=== PATIENT | female | born 1935 | race Caucasian/White ===

== ENCOUNTER → 2019-06-24 12:26 | Outpatient (CLI) | payer OTHER, SELFPAY ==
--- NOTE | 2019-06-24 | DI.MG.S_ITS ---
PROCEDURE: MM SCREENING MAMMO BI COMPARISON: [facility], , BILATERAL SCREEING MAMMOGRAM W/ CAD, 08/01/2015, 17:46. [facility], , BILATERAL SCREEING MAMMOGRAM W/ CAD, 01/01/2012, 14:14. [facility], , BILATERAL SCREEING MAMMOGRAM W/ CAD, 11/19/2009, 9:00. INDICATIONS: ROUTINE MAMMO FINDINGS: IMPRESSION: Dictated by: Vik Giordano M.D. on 06/24/2019 at 16:06 Approved by: Vik Giordano M.D. on 06/24/2019 at 16:08
== END ==
PROVIDERS: Visit Provider Nurse Practitioner
DX: Z12.31 Encounter for screening mammogram for malignant neoplasm of breast (principal); M85.851 Other specified disorders of bone density and structure, right thigh; Z78.0 Asymptomatic menopausal state; Z82.62 Family history of osteoporosis; E07.9 Disorder of thyroid, unspecified
CPT/HCPCS: 77063; 77067; 77080

== ENCOUNTER → 2019-07-01 15:41 | Outpatient (CLI) | payer OTHER, SELFPAY ==
[2019-07-01 16:21] LABS: Add Manual Diff / Slide Review NO; Basophils Absolute Auto 0 /uL (0-100); Basophils Percent Auto 0.7 % (0-2); Eosinophils Absolute Auto 300 /uL (0-450); Eosinophils Percent Auto 6.6 % (2-4); Hematocrit 36.5 % (36-46); Hemoglobin 12.5 g/dL (12.0-16.0); Lymphocytes Absolute Auto 900 /uL (1100-4500); Mean Corpuscular HGB Conc 34.3 % (30-36); Mean Corpuscular Hemoglobin 32.2 PG (26-34); Mean Corpuscular Volume 93.9 fL (80-100); Monocytes Absolute Auto 300 /uL (0-900); Monocytes Percent Auto 6.8 % (3-14); Neutrophils Absolute Auto 3100 /uL (1500-7000); Neutrophils Percent Auto 66.9 % (50-75); Platelet Count 162 X10^3/uL (150-400); Red Blood Cell Count 3.88 X10^6/uL (4.0-5.2); Red Cell Distribution Width 13.6 % (11.6-14.8); White Blood Cell Count 4.6 X10^3/uL (4.5-11.0)
[2019-07-01 16:56] LABS: Alanine Aminotransferase 28 IU/L (9-52); Albumin 4.2 g/dL (3.5-5.0); Albumin Globulin Ratio 1.5 (1.0-2.8); Alkaline Phosphatase 58 U/L (38-126); Aspartate Aminotransferase 27 IU/L (14-36); BUN Creatinine Ratio 23.3 (6-22); Bilirubin Total 0.7 mg/dL (0.2-1.3); Blood Urea Nitrogen 21 mg/dL (7-17); Calcium 10.2 mg/dL (8.4-10.2); Carbon Dioxide 35 mmol/L (22-32); Chloride 98 mmol/L (98-107); Cholesterol 189 mg/dL (140-199); Estimated Glomerular Filt Rate 59.8 mL/min (>60); Globulin 2.8 g/dL (1.7-4.1); Glucose 86 mg/dL (80-110); HDL Cholesterol 64 mg/dL (40-60); HEMOLYSIS 23 (0-50); LDL Cholesterol Calculated 104 mg/dL (<100); Sodium 138 mmol/L (137-145); Triglycerides 105 mg/dL (35-150)
[2019-07-01 17:27] LABS: Thyroid Stimulating Hormone 0.53 uIU/mL (0.47-4.68)
== END ==
PROVIDERS: PCP Nurse Practitioner; Visit Provider Nurse Practitioner
DX: I10 Essential (primary) hypertension (principal); G25.81 Restless legs syndrome; I83.10 Varicose veins of unspecified lower extremity with inflammation; G47.00 Insomnia, unspecified
CPT/HCPCS: 36415; 80053; 80061; 84443; 85025

== ENCOUNTER → 2020-03-02 10:36 | Outpatient (CLI) | payer MEDICARE, OTHER, SELFPAY ==
[2020-03-02 11:39] LABS: Hematocrit 33.5 % (36-46); Hemoglobin 12.1 g/dL (12.0-16.0); Mean Corpuscular HGB Conc 36.1 % (30-36); Mean Corpuscular Hemoglobin 33.7 PG (26-34); Mean Corpuscular Volume 93.5 fL (80-100); Platelet Count 155 X10^3/uL (150-400); Red Blood Cell Count 3.58 X10^6/uL (4.0-5.2); Red Cell Distribution Width 14.9 % (11.6-14.8); White Blood Cell Count 3.5 X10^3/uL (4.5-11.0)
[2020-03-02 11:57] LABS: Aspartate Aminotransferase 27 IU/L (14-36); Blood Urea Nitrogen 13 mg/dL (7-17); Calcium 9.8 mg/dL (8.4-10.2); Carbon Dioxide 33 mmol/L (22-32); Chloride 100 mmol/L (98-107); Cholesterol 128 mg/dL (140-199); Estimated Glomerular Filt Rate > 60.0 mL/min (>60); Glucose 91 mg/dL (80-110); HDL Cholesterol 55 mg/dL (40-60); HEMOLYSIS < 15 (0-50); LDL Cholesterol Calculated 55 mg/dL (<100); Potassium 3.9 mmol/L (3.4-5.1); Sodium 138 mmol/L (137-145); Triglycerides 88 mg/dL (35-150)
[2020-03-02 12:31] LABS: TSH w/ Reflex to FT4 0.04 uIU/mL (0.47-4.68)
[2020-03-02 13:05] LABS: Free T4, Direct Thyroxine 1.88 ng/dL (0.78-2.19)
== END ==
PROVIDERS: PCP Internal Medicine; Referring Provider Internal Medicine; Visit Provider Internal Medicine
DX: I10 Essential (primary) hypertension (principal); E78.2 Mixed hyperlipidemia; E03.9 Hypothyroidism, unspecified; G60.9 Hereditary and idiopathic neuropathy, unspecified
CPT/HCPCS: 36415; 80048; 80061; 84439; 84443; 84450; 85027

== ENCOUNTER → 2020-04-18 12:43 | Outpatient (CLI) | payer MEDICARE, OTHER, SELFPAY ==
[2020-04-18 14:22] LABS: Reticulocyte Count, Percent 0.8 % (1.06-2.63)
[2020-04-18 15:06] LABS: Iron 77 ug/dL (37-170)
[2020-04-18 15:39] LABS: Ferritin 136 ng/mL (11-264)
[2020-04-18 16:09] LABS: Folate 12.2 ng/mL (2.76-20.0); Vitamin B12 481 pg/mL (239-931)
== END ==
PROVIDERS: PCP Internal Medicine; Referring Provider Internal Medicine; Visit Provider Internal Medicine
DX: D84.8 Other specified immunodeficiencies (principal); E53.8 Deficiency of other specified B group vitamins; D84.9 Immunodeficiency, unspecified; D64.9 Anemia, unspecified
CPT/HCPCS: 36415; 82607; 82728; 82746; 83540; 85045

== ENCOUNTER → 2020-08-20 18:34 | Outpatient (ROUT) | payer MEDICARE, OTHER, SELFPAY ==
[2020-08-20 19:04] LABS: Add Manual Diff / Slide Review NO; Basophils Absolute Auto 0 /uL (0-100); Basophils Percent Auto 0.3 % (0-2); Eosinophils Absolute Auto 0 /uL (0-450); Hematocrit 33.9 % (36-46); Hemoglobin 11.6 g/dL (12.0-16.0); Lymphocytes Absolute Auto 1100 /uL (1100-4500); Lymphocytes Percent Auto 25.4 % (25-40); Mean Corpuscular HGB Conc 34.2 % (30-36); Mean Corpuscular Hemoglobin 31.9 PG (26-34); Mean Corpuscular Volume 93.4 fL (80-100); Monocytes Absolute Auto 300 /uL (0-900); Monocytes Percent Auto 6.6 % (3-14); Neutrophils Absolute Auto 3000 /uL (1500-7000); Neutrophils Percent Auto 67.7 % (50-75); Platelet Count 146 X10^3/uL (150-400); Red Blood Cell Count 3.63 X10^6/uL (4.0-5.2); Red Cell Distribution Width 13.7 % (11.6-14.8); White Blood Cell Count 4.4 X10^3/uL (4.5-11.0)
[2020-08-20 19:19] LABS: BUN Creatinine Ratio 18.8 (6-22); Blood Urea Nitrogen 16 mg/dL (7-17); Calcium 9.5 mg/dL (8.4-10.2); Carbon Dioxide 36 mmol/L (22-32); Chloride 101 mmol/L (98-107); Estimated Glomerular Filt Rate > 60.0 mL/min (>60); Glucose 80 mg/dL (80-110); HEMOLYSIS < 15 (0-50); Sodium 140 mmol/L (137-145)
[2020-08-20 19:47] LABS: TSH w/ Reflex to FT4 0.15 uIU/mL (0.47-4.68)
[2020-08-20 20:41] LABS: Free T4, Direct Thyroxine 1.92 ng/dL (0.78-2.19)
== END ==
PROVIDERS: PCP Internal Medicine; Visit Provider Internal Medicine
DX: D64.9 Anemia, unspecified (principal); E03.9 Hypothyroidism, unspecified; I10 Essential (primary) hypertension
CPT/HCPCS: 80048; 84439; 84443; 85025

== ENCOUNTER → 2021-03-05 14:01 | Outpatient (CLI) | payer MEDICARE, OTHER, SELFPAY | PROVIDERS: PCP Internal Medicine; Referring Provider Internal Medicine; Visit Provider Internal Medicine | DX: M85.851 Other specified disorders of bone density and structure, right thigh (principal); Z78.0 Asymptomatic menopausal state; E07.9 Disorder of thyroid, unspecified; Z82.62 Family history of osteoporosis | CPT/HCPCS: 77080 ==

== ENCOUNTER → 2023-08-09 16:02 | Outpatient (CLI) | payer MEDICARE, OTHER, SELFPAY | PROVIDERS: PCP Internal Medicine; Visit Provider Physician Assistant | DX: J02.9 Acute pharyngitis, unspecified (principal) | CPT/HCPCS: 87070; 87880 ==

== ENCOUNTER 2024-05-20 18:24 | Emergency (ER) | payer MEDICARE, OTHER, SELFPAY ==
[2024-05-20] VITALS (8 sets, daily range): BP systolic 137–178; BP diastolic 63–92; PULSE 52–66; RESP 15–18; TEMP 36.9–37.1; O2SAT 96–99; BMI 22.8
--- NOTE | 2024-05-20 18:38 | EKG_ITS ---
[place] [id number] [place] [id number] Test Date: 2024-05-20 Pat Name: Starr Mccarthy Department: [facility] Room: Gender: Female [employer]: : 1935 Requested By: Order Number: [id number] Reading MD: Matthew Acosta Measurements Intervals [place] Rate: 57 P: 69 [place]: 236 QRS: -12 QRSD: 84 T: 24 QT: 432 QTc: 420 Interpretive Statements Sinus bradycardia with 1st degree AV block Minimal voltage criteria for LVH, may be normal variant ( R in aVL ) Cannot rule out Anterior infarct , age undetermined Electronically Signed On 05-22-2024 7:16:02 PDT by Matthew Acosta
--- NOTE | 2024-05-20 18:38 | DI.RAD.S_ITS ---
PROCEDURE: XR CHEST 1V INDICATIONS: chest pain TECHNIQUE: One view of the chest was acquired. COMPARISON: None. FINDINGS: Surgical changes and devices: Densities seen along the lateral chest wall, probably external. Lungs and pleura: No dense consolidation or pleural effusion Mediastinum: Normal heart size Bones and chest wall: Degenerative changes IMPRESSION: Limited single view radiograph without acute abnormality. Dictated by: Donnie Jack M.D. on 05/20/2024 at 19:19 Approved by: Donnie Jack M.D. on 05/20/2024 at 19:19
--- NOTE | 2024-05-20 18:38 | DI.CT.S_ITS ---
PROCEDURE: CT HEAD/BRAIN WO CON INDICATIONS: syncope/ hit head TECHNIQUE: Noncontrast 4.5 mm thick angled axial sections acquired from the foramen magnum to the vertex, with coronal and sagittal reformats. For radiation dose reduction, the following was used: automated exposure control, adjustment of mA and/or kV according to patient size. COMPARISON: None. FINDINGS: Image quality: Diagnostic CSF spaces: Basal cisterns are patent. Lateral ventricles are symmetric. Volume: Vascular calcifications. Periventricular white matter disease is commonly seen with chronic microangiopathy. Volume loss is present. These findings are [id number] Brain: No acute hematoma. No gross loss of otero-white differentiation Craniofacial structures: No significant paranasal sinus opacity. IMPRESSION: No acute intracranial pathology. If there is high concern for parenchymal pathology, consider further evaluation with MRI. Dictated by: Donnie Jack M.D. on 05/20/2024 at 19:19 Approved by: Donnie Jack M.D. on 05/20/2024 at 19:20
--- NOTE | 2024-05-20 18:38 | DI.CT.S_ITS ---
PROCEDURE: CT CERVICAL SPINE WO CON INDICATIONS: syncope/ hit head TECHNIQUE: Noncontrast 3 mm thick sections acquired from the skull base to the T4 level. Sagittal and coronal reformats were then constructed. For radiation dose reduction, the following was used: automated exposure control, adjustment of mA and/or kV according to patient size. COMPARISON: None. FINDINGS: Image quality: Diagnostic Bones: Moderate degenerative changes. Age-indeterminate endplate deformity at T2, nonacute appearing. No acute vertebral body height loss or traumatic subluxation. Slight rotational asymmetry of C1 on C2 may be positional. Partially seen rightward thoracic spinal curvature. Soft tissues: There are vascular calcifications. No pathologic prevertebral soft tissue swelling IMPRESSION: No displaced fracture or traumatic subluxation. Moderate degenerative changes. Slight rotational asymmetry of C1 on C2 may be positional. If there is high concern for further derangement, consider MRI evaluation. Dictated by: Donnie Jack M.D. on 05/20/2024 at 19:21 Approved by: Donnie Jack M.D. on 05/20/2024 at 19:23
[2024-05-20 19:34] LABS: Add Manual Diff / Slide Review NO; Basophils Absolute Auto 0 /uL (0-100); Basophils Percent Auto 0.6 % (0-2); Eosinophils Absolute Auto 100 /uL (0-450); Eosinophils Percent Auto 2.4 % (2-4); Hematocrit 34.3 % (36-46); Hemoglobin 11.6 g/dL (12.0-16.0); Lymphocytes Absolute Auto 1100 /uL (1100-4500); Lymphocytes Percent Auto 21.2 % (25-40); Mean Corpuscular HGB Conc 33.7 % (30-36); Mean Corpuscular Hemoglobin 31.4 PG (26-34); Mean Corpuscular Volume 93.1 fL (80-100); Monocytes Absolute Auto 300 /uL (0-900); Monocytes Percent Auto 6.6 % (3-14); Neutrophils Absolute Auto 3600 /uL (1500-7000); Neutrophils Percent Auto 69.2 % (50-75); Platelet Count 173 X10^3/uL (150-400); Red Blood Cell Count 3.68 X10^6/uL (4.0-5.2); Red Cell Distribution Width 14.4 % (11.6-14.8); White Blood Cell Count 5.2 X10^3/uL (4.5-11.0)
[2024-05-20 19:37] LABS: Prothrombin Time 11.2 SECONDS (9.4-12.5)
[2024-05-20 19:40] LABS: PTT Partial Thromboplastin Tim 36 SECONDS (25.1-36.5)
[2024-05-20 19:41] LABS: Alanine Aminotransferase 47 IU/L (<35); Albumin 4.2 g/dL (3.5-5.0); Albumin Globulin Ratio 1.3 (1.0-2.8); Alkaline Phosphatase 68 U/L (38-126); Aspartate Aminotransferase 40 IU/L (14-36); BUN Creatinine Ratio 30.5 (6-22); Bilirubin Total 0.5 mg/dL (0.2-1.3); Blood Urea Nitrogen 32 mg/dL (7-17); Calcium 9.2 mg/dL (8.4-10.2); Carbon Dioxide 30 mmol/L (22-32); Chloride 101 mmol/L (98-107); Creatine Kinase 326 U/L (30-135); Estimated Glomerular Filt Rate 51 mL/min (>60); Globulin 3.2 g/dL (1.7-4.1); Glucose 94 mg/dL (80-110); HEMOLYSIS < 15 (0-50); Lipase 73 U/L (23-300); Potassium 3.4 mmol/L (3.4-5.1); Sodium 135 mmol/L (137-145); Total Protein 7.4 g/dL (6.3-8.2)
--- NOTE | 2024-05-20 19:42 | PC.NURSE ---
had similar syncopal episode back in January while in [place], patient states she was in the hospital for 48hrs and they couldnt find a cause. Patient reports feeling dizzy before syncopizing and feeling very flushed
[2024-05-20 19:53] LABS: NT-proBNP (BNP-Adult 18+) 374 pg/mL (<450); Troponin I < 0.012 ng/mL (0.01-0.034)
--- NOTE | 2024-05-20 22:42 | ED.SYNCOPE ---
HPI - Syncope General Chief Complaint: Syncope Stated Complaint: syncopal episode t-3, poss broken ribs Time Seen by Provider: 05/20/24 22:42 Source: patient, RN notes reviewed and old records reviewed Mode of arrival: Ambulatory Limitations: no limitations History of Present Illness HPI narrative: 88-year-old female history of restless leg, hypertension patient states no known cardiac disease. She states Thursday night Thursday morning she was standing felt hot and dizzy had been riding some checked out. She went to go to the bathroom and next thing she knew she woke up on the floor. This was several days ago. She states she is felt okay since then but when she rolls over she has pain in her right posterior ribs. She is unsure if there is any skin changes. She has not had any more syncopal episodes denies any other dizziness, denies chest pain or shortness of breath, no nausea or vomiting no other GI or urinary symptoms. Patient states she had some numbness and tingling in her leg but gets that on and off normally related to her restless leg. Patient states she has had 1 prior syncopal episode in January and before that was 2012. She states she does not take any cardiac meds but does take medication for hypertension. Denies any drug allergies. Active tobacco use, denies regular alcohol, denies any recreational drugs. States she is supposed to be establishing with Dr. Lott but does not have this confirmed. Patient was sent from walk-in clinic. Related Data Previous Rx's Medication Instructions Recorded lidocaine 5 % topical patch 1 patch topical DAILY #30 ea 05/20/24 Allergies Allergy/AdvReac Type Severity Reaction Status Date / Time No Known Drug Allergies Allergy Unverified 08/09/23 15:37 Review of Systems Review of Systems ROS Unobtainable: All systems reviewed & are unremarkable except as noted in HPI and below Patient History Social History Smoking Status: Smoker, status unknown Smoking Status: Smoker, status unknown Exam Narrative Exam Narrative: GEN:Patient appears in mild distress. Patient was standing and ambulating out of the room during evaluation. HEAD: Patient has some greenish ecchymosis on the left forehead, no hematoma, no raccoon/[place]a sign. NECK: Nontender, painless range of motion, trachea midline No Nexus criteria, no line tenderness, distracting injury, altered mental status, neuro deficit, recent EtOH. EYES: PERRLA, EOMI ENT: External inspection normal, trachea is midline, TM's are normal no hemotypanum, Nares are clear, no septal hematoma, no dental or oral injury, airway is normal and with normal occlusion, No bony tenderness RESP: Chest he is nontender except for the wrote posterior rims around 9 in 10. No obvious ecchymosis but there is a little bit of ecchymosis just below. No hematoma. Patient is mildly tender to touch. And has symmetric movement, no ecchymosis, breath sounds are normal no crackles, wheezes or rales CVS: Heart sounds are normal, no murmur noted, No JVD. ABG/GI: Nontender, soft, normal bowel sounds, no distention, no organomegaly, pelvic rock is negative NEURO: Oriented AOx3, neuro is grossly intact, sensation and motor is normal all 4 extremities moving, cranial nerves II through XII are intact, GCS is 15 PSYCH: Normal mood and affect SKIN: Intact, warm and dry, no crepitus and without decubitus BACK: No CVA tenderness, no vertebral tenderness, no step-off's, no crepitus EXT: Atraumatic, hips are nontender, no pedal edema, normal color and temperature, normal range of motion of extremities with normal tendon exam, 2+ pulses in all four extremities Initial Vital Signs Initial Vital Signs: Vital Signs Temperature 98.7 F 05/20/24 18:26 Pulse Rate 62 05/20/24 18:26 Respiratory Rate 16 05/20/24 18:26 Blood Pressure 174/92 H 05/20/24 18:26 Pulse Oximetry 98 05/20/24 18:26 Oxygen Delivery Method Room Air 05/20/24 18:26 Course Orders Ordered: ED Orders 05/20/24 18:38 CT cervical spine wo con Stat CT head/brain wo con Stat XR chest 1V Stat EKG-12 Lead Stat 05/20/24 19:20 Complete Blood Count AUTO DIFF Stat Comprehensive Metabolic Panel Stat Lipase Stat Magnesium Stat NT-proBNP (BNP-Adult 18+) Stat PTT Partial Thromboplastin Andre Stat Prothrombin Time INR Stat Troponin & CK Cardiac Panel Stat Discontinued Medications Lidocaine (Lidocaine 5% Patch) 1 each TOP NOW ONE Stop: 05/20/24 22:58 Last Admin: 05/20/24 23:04 Dose: 1 each Documented By: DAYANARA Vital Signs Vital signs: Vital Signs - 8 hr 05/20/24 19:30 05/20/24 19:30 05/20/24 20:00 Temperature Pulse Rate 52 L 54 L Respiratory Rate 15 15 Blood Pressure 158/71 H Pulse Oximetry 97 97 Oxygen Delivery Method 05/20/24 20:00 05/20/24 20:30 05/20/24 20:30 Temperature Pulse Rate 60 Respiratory Rate 15 Blood Pressure 137/63 164/72 H Pulse Oximetry 97 Oxygen Delivery Method 05/20/24 21:00 05/20/24 23:14 Temperature 98.4 F Pulse Rate 63 66 Respiratory Rate 17 18 Blood Pressure 163/71 H Pulse Oximetry 99 98 Oxygen Delivery Method Room Air MDM - Syncope Lab Data 05/20/24 19:20 05/20/24 19:20 Labs: Lab Results 05/20/24 Range/Units 19:20 WBC 5.2 (4.5-11.0) X10^3/uL RBC 3.68 L (4.0-5.2) X10^6/uL Hgb 11.6 L (12.0-16.0) g/dL Hct 34.3 L (36-46) % MCV 93.1 (80-100) fL MCH 31.4 (26-34) PG MCHC 33.7 (30-36) % RDW 14.4 (11.6-14.8) % Plt Count 173 (150-400) X10^3/uL Neut % (Auto) 69.2 (50-75) % Lymph % (Auto) 21.2 L (25-40) % [place] % (Auto) 6.6 (3-14) % Eos % (Auto) 2.4 (2-4) % Baso % (Auto) 0.6 (0-2) % Neut # (Auto) 3600 (1723-5360) /uL Lymph # (Auto) 1100 (5632-5156) /uL [place] # (Auto) 300 (0-900) /uL Eos # (Auto) 100 (0-450) /uL Baso # (Auto) 0 (0-100) /uL PT 11.2 (9.4-12.5) SECONDS INR 1.0 (0.9-1.3) APTT 36 (25.1-36.5) SECONDS Sodium 135 L (137-145) mmol/L Potassium 3.4 (3.4-5.1) mmol/L Chloride 101 (98-107) mmol/L Carbon Dioxide 30 (22-32) mmol/L BUN 32 H (7-17) mg/dL Creatinine 1.05 H (0.52-1.04) mg/dL Estimated GFR 51 L (>60) mL/min BUN/Creatinine Ratio 30.5 H (6-22) Glucose 94 (80-110) mg/dL Calcium 9.2 (8.4-10.2) mg/dL Magnesium 2.0 (1.6-2.3) mg/dL Total Bilirubin 0.5 (0.2-1.3) mg/dL AST 40 H (14-36) IU/L ALT 47 H (<35) IU/L Alkaline Phosphatase 68 (38-126) U/L Total Creatine Kinase 326 H (30-135) U/L Troponin I < 0.012 (0.01-0.034) ng/mL NT-Pro-B Natriuret Pep 374 (<450) pg/mL Total Protein 7.4 (6.3-8.2) g/dL Albumin 4.2 (3.5-5.0) g/dL Globulin 3.2 (1.7-4.1) g/dL Albumin/Globulin Ratio 1.3 (1.0-2.8) Lipase 73 (23-300) U/L ECG Data Attestation: I personally reviewed and interpreted this ECG as follows: Prior ECG tracings: not available for review Interpretation: Sinus bradycardia first-degree AV block, rate of 57 GA 236 QRS 84 QTC 420, no acute ST elevation, possible left anterior fascicular block. MDM Narrative Medical decision making narrative: 88-year-old female that reports fall versus syncope proximally 3 days ago, head CT C-spine and chest x-ray showed no acute changes patient has nontender on exam EKG does show sinus bradycardia no priors for comparison labs show a baseline anemia without major changes no significant electrolyte changes BUN slightly elevated at 32 creatinine 1.05, AST is a very mildly elevated. Troponin and BNP are negative. Has been several days since episode occurred with no additional episodes. Did have head CT because she would hit her head on although not on thinners is 88 years of age. Patient presented today because he was has a persistent discomfort over her right posterior ribs. Patient is felt appropriate for discharge home Head CT shows no acute change CT cervical spine shows no displaced fracture or traumatic subluxation moderate degenerative changes slight rotational asymmetry of C1 on C2 maybe positional. Patient has nontender on exam. Chest x-ray shows no acute change EKG shows sinus bradycardia first-degree AV block rate of 57 GA 236 QRS 84 QTC of 420, no acute ST elevation. No priors for comparison. Labs show white count of 5.2 hemoglobin 11.6 consistent with priors platelets of 173. Coags are negative sodium is 135 potassium 3.4 chloride 101 CO2 is 30 BUN 32 with creatinine 1.05 glucose is 94 LFTs show an AST of 40 ALT of 47, alk-phos is 68 with a bilirubin of 0.5, troponin is less than 0.012. BNP is 374. Patient has been ambulating in the department without any issue she was walked to several patient rooms and chatted with them. Discussed with patient she does have little bit of possible rib contusion versus fracture no change on chest x-ray, no obvious bruising over that area with some slight bruising just below. Patient was given lidocaine patch here. We will send a prescription if she finds this helpful. Patient wishes for discharge home. She is otherwise well-appearing has had 2 syncopal episodes in the last 12 months so we discussed having follow up for further workup. That has been several days of the feel that patient needs observation or admission. Discharge Plan Departure Patient Disposition: Home Clinical Impression: Syncope Instructions: DI for Syncope in Adults (Fainting) Activity Restrictions/Additional Instructions: Please follow up with your physician, you can talk with your physician if they feel you need further evaluation such as heart monitor or ECHO. Your imaging does not show any obvious rib fractures but you are tender over that area you may have contusion versus nondisplaced fracture. These typically take 8-12 weeks to fully heal but should start to improve over the next 1-2 weeks. You can try topical lidocaine patches if the one from [facility] is helpful a prescription was sent to [facility] in [place] You can take Tylenol up to a 1000 mg every 6 hours as needed for pain. You can take this with your home medications including allopurinol Please return for recurrent symptoms, severe headaches, new or worsening chest pain or shortness of breath, persistent vomiting, new swelling in extremities or other new or concerning changes. Prescriptions: New lidocaine 5 % adhesive patch,medicated 1 patch topical DAILY Qty: 30 0RF Rx Instructions: leave on most painful area for up to 12 hrs Referrals: Miguel Perez MD [Primary Care Provider] - Stand Alone Forms: Patient Portal/API
[2024-05-20] MEDS: LIDOCAINE 5% PATCH 1 EACH TOP (23:04)
== END 2024-05-20 23:12 | disposition home or self-care (01) ==
PROVIDERS: Emergency Provider Emergency Medicine; PCP Internal Medicine
DX: R55 Syncope and collapse (principal); R00.1 Bradycardia, unspecified; I44.0 Atrioventricular block, first degree; S09.90XA Unspecified injury of head, initial encounter; R07.9 Chest pain, unspecified
CPT/HCPCS: 36415; 70450; 71045; 72125; 80053; 82550; 83690; 83735; 83880; 84484; 85025; 85610; 85730; 93005; 99283; 99284

== ENCOUNTER → 2024-09-30 18:14 | Outpatient (CLI) | payer MEDICARE, OTHER, SELFPAY ==
--- NOTE | 2024-09-30 18:21 | DI.RAD.S_ITS ---
PROCEDURE: XR CHEST 2V INDICATIONS: Cough, chest congestion TECHNIQUE: 2 views of the chest were acquired. COMPARISON: [facility], CR, XR CHEST 2 VIEWS, 07/19/2024, 6:50. FINDINGS: Surgical changes and devices: Cardiac pacemaker is seen with pulse generator in the left chest. Lungs and pleura: Lungs are mildly hyperexpanded and clear. No pleural effusions or pneumothorax. Mediastinum: Mediastinal contours are normal. Heart size is normal. Bones and chest wall: No suspicious bony abnormalities. Soft tissues appear unremarkable. IMPRESSION: No acute cardiopulmonary abnormality is seen. Approved by: Charles López M.D. on 09/30/2024 at 19:37
== END ==
PROVIDERS: PCP Student in an Organized Health Care Education/Training Program; Referring Provider Physician Assistant Surgical; Visit Provider Physician Assistant Surgical
DX: R05.9 Cough, unspecified (principal); R09.89 Other specified symptoms and signs involving the circulatory and respiratory systems
CPT/HCPCS: 71046